=== PATIENT | male | born 1970 | race Asian ===

== ENCOUNTER 2017-12-19 04:07 | Emergency (ER) | payer SELFPAY ==
[~2017-12-19] VITALS: Ht 170.2 cm; Wt 82.0 kg
[~2017-12-19 04:07] MED LIST: ADVIL; MOTRIN
[2017-12-19] MEDS ORDERED: BACITRACIN ZINC OINT UDPKT TOP ONE (05:15)
[2017-12-19] MEDS ORDERED: TETANUS, DIPHTHERIA, PERTUSSIS VAC/PF 0.5ML (>7YR OLD) IM ONE (05:15)
[2017-12-19] MEDS ORDERED: KETOROLAC 60MG/2ML VIAL IM ONE (05:15)
[2017-12-19] MEDS ORDERED: LIDOCAINE HCL 1% 20ML VIAL (Pyxis) INJ MC ONE (05:15)
[2017-12-19] MEDS ORDERED: TRAMADOL 50MG TABLET PO ONE (07:45)
[2017-12-19 08:15] VITALS: BP 147/90
== END 2017-12-19 08:16 | disposition home or self-care (01) ==
LOC: ER 04:40
DX: S02.2XXA Fracture of nasal bones, initial encounter for closed fracture (principal); S01.512A Laceration without foreign body of oral cavity, initial encounter; J34.2 Deviated nasal septum; W01.0XXA Fall on same level from slipping, tripping and stumbling without subsequent striking against object, initial encounter; Y93.89 Activity, other specified; Y99.8 Other external cause status; Y92.89 Other specified places as the place of occurrence of the external cause; Z98.890 Other specified postprocedural states
CPT/HCPCS: 12011; 70486; 90471; 90715; 96372; 99284; J1885; J3490

== ENCOUNTER 2020-04-12 19:28 | Emergency (ER) | payer MEDICAID ==
[~2020-04-12] VITALS: Ht 170.2 cm; Wt 82.0 kg
[2020-04-12] MEDS ORDERED: SODIUM CHLORIDE 0.9% 1,000 ML IV ONE (20:28)
[2020-04-12] MEDS ORDERED: KETOROLAC 30MG/ML VIAL IV STA (20:28)
[2020-04-12 21:27] LABS: BASOPHILS % 0.5 % (0.0-2.0); EOSINOPHILS % 2.1 % (0.0-5.0); HEMOGLOBIN. 15.7 g/dL (14.0-18.0); LYMPHOCYTES % 32.9 % (20.0-50.0); MEAN CORPUSCULAR HEMOGLOBIN 31.4 pg (28.0-32.0); MEAN CORPUSCULAR VOLUME 90.3 fL (80.0-94.0); MEAN PLATELET VOLUME 8.5 fl (7.4-10.4); MONOCYTES % 4.1 % (2.0-8.0); NEUTROPHILS % 60.4 % (40.0-76.0); PLATELET 199 x1000/uL (130-400); RED BLOOD CELL COUNT 4.98 mill/uL (4.7-6.1); RED CELL DISTRIBUTION WIDTH 13.4 % (11.6-14.6)
[2020-04-12 21:33] LABS: CHLORIDE 108 mEq/L (98-107)
[2020-04-12 21:37] LABS: ETHANOL BLOOD < 10 mg/dL
[2020-04-12 21:55] LABS: CLARITY URINE CLEAR (CLEAR); COLOR URINE YELLOW (YELLOW); KETONES URINE 1+ (NEGATIVE); LEUKOCYTE ESTERASE URINE NEGATIVE (NEGATIVE); NITRITE URINE NEGATIVE (NEGATIVE); OCCULT BLOOD URINE NEGATIVE (NEGATIVE); PROTEIN URINE TRACE (NEGATIVE); SPECIFIC GRAVITY URINE 1.032 (1.005-1.030)
[2020-04-12 22:11] VITALS: BP 142/95
[2020-04-12 22:16] LABS: CANNABINOID URINE SCREEN NEGATIVE (NEGATIVE); METHADONE URINE SCREEN NEGATIVE (NEGATIVE); OPIATES URINE SCREEN NEGATIVE (NEGATIVE); PHENCYCLIDINE URINE SCREEN NEGATIVE (NEGATIVE)
[2020-04-12 22:17] LABS: *AMPHETAMINES SCREEN URINE NEGATIVE (NEGATIVE); *BARBITURATES SCREEN URINE NEGATIVE (NEGATIVE); *BENZODIAZEPINES SCREEN URINE NEGATIVE (NEGATIVE); *COCAINE SCREEN URINE NEGATIVE (NEGATIVE)
== END 2020-04-12 22:12 | disposition home or self-care (01) ==
LOC: ER 19:28
DX: R10.9 Unspecified abdominal pain (principal); I10 Essential (primary) hypertension
CPT/HCPCS: 36415; 80053; 80305; 80320; 81003; 83690; 85025; 96374; 99283; J1885; J7030; G0480

== ENCOUNTER 2023-03-10 13:08 | Inpatient (IN) | payer MEDICAID, OTHER ==
[~2023-03-10] VITALS: Ht 165.1 cm; Wt 93.4 kg
[2023-03-10 13:44] LABS: BASOPHILS % 0.5 % (0.0-2.0); EOSINOPHILS % 2.7 % (0.0-5.0); HEMATOCRIT. 39.7 % (42.0-52.0); HEMOGLOBIN. 13.8 g/dL (14.0-18.0); LYMPHOCYTES % 15.5 % (20.0-50.0); MEAN CORPUSCULAR HEMOGLOBIN 30.9 pg (28.0-32.0); MEAN CORPUSCULAR VOLUME 89.2 fL (80.0-94.0); MEAN PLATELET VOLUME 8.7 fl (7.4-10.4); MONOCYTES % 3.9 % (2.0-8.0); NEUTROPHILS % 77.4 % (40.0-76.0); PLATELET 182 x1000/uL (130-400); RED BLOOD CELL COUNT 4.46 mill/uL (4.7-6.1); RED CELL DISTRIBUTION WIDTH 13.8 % (11.6-14.6)
[2023-03-10 14:07] LABS: CHLORIDE 112 mEq/L (98-107)
[2023-03-10 15:11] LABS: CLARITY URINE CLEAR (CLEAR); COLOR URINE YELLOW (YELLOW); KETONES URINE TRACE (NEGATIVE); LEUKOCYTE ESTERASE URINE NEGATIVE (NEGATIVE); NITRITE URINE NEGATIVE (NEGATIVE); OCCULT BLOOD URINE NEGATIVE (NEGATIVE); PROTEIN URINE 1+ (NEGATIVE); SPECIFIC GRAVITY URINE 1.026 (1.005-1.030); UROBILINOGEN URINE 0.2 E.U./dL (0.2-1.0)
[2023-03-10] MEDS ORDERED: CEFTRIAXONE 1GM PREMIX 50 ML IV ONE (16:00)
[2023-03-10] MEDS ORDERED: ASPIRIN 81MG TABLET PO ONE (16:00)
[2023-03-10] MEDS ORDERED: AZITHROMYCIN 500MG/250ML 250 ML IV ONE (16:00)
[2023-03-10] MEDS ORDERED: FUROSEMIDE 40MG/4ML VIAL IVP ONE (16:15)
[2023-03-10] MEDS ORDERED: CLONIDINE 0.2MG TABLET PO ONE (16:15)
[2023-03-10] MEDS ORDERED: CLONIDINE 0.1MG TABLET PO NR (16:45)
[2023-03-10 16:53] LABS: D-DIMER 1.81 mg/L FEU (<0.50); PARTIAL THROMBOPLASTIN TIME 30.8 sec (23.4-31.0); PROTHROMBIN TIME 11.1 sec (9.6-11.0)
[2023-03-10] MEDS ORDERED: AZITHROMYCIN 500MG/250ML 250 ML IV NR (19:00)
[2023-03-10] MEDS ORDERED: IOHEXOL-350 100 ML BOTTLE ONE (21:14)
[2023-03-10 21:48] VITALS: BP 165/98; PULSE 80; RESP 20; TEMP 98.8
[2023-03-11] VITALS (7 sets, daily range): BP systolic 121–152; BP diastolic 64–107; PULSE 64–82; RESP 18–20; TEMP 97.7–99.1
[2023-03-11] MEDS ORDERED: IPRATROPIUM/ALBUTEROL 0.5-3(2.5)MG/3ML NEB HHN PRN (01:15)
[2023-03-11] MEDS: FUROSEMIDE 40MG/4ML VIAL IVP SCH (10:16)
[2023-03-11] MEDS: ENOXAPARIN 40MG/0.4ML SYR SUBCUT SCH (10:16)
[2023-03-11] MEDS: LOSARTAN POTASSIUM 50 MG TABLET PO SCH (10:17)
[2023-03-11] MEDS: CARVEDILOL 3.125 MG TABLET PO SCH ×2 (10:17→20:37)
[2023-03-11] MEDS: ASPIRIN 81MG TABLET PO SCH (10:18)
[2023-03-11] MEDS: AMLODIPINE 10MG TABLET PO SCH (10:19)
[2023-03-11] MEDS ORDERED: ACETAMINOPHEN 325MG TABLET PO PRN (12:30)
[2023-03-12] VITALS (8 sets, daily range): BP systolic 125–167; BP diastolic 87–112; PULSE 68–78; RESP 18–20; TEMP 97.3–98
[2023-03-12 01:28] LABS: *AMPHETAMINES SCREEN URINE NEGATIVE (NEGATIVE); *BARBITURATES SCREEN URINE NEGATIVE (NEGATIVE); *BENZODIAZEPINES SCREEN URINE NEGATIVE (NEGATIVE); *COCAINE SCREEN URINE NEGATIVE (NEGATIVE); CANNABINOID URINE SCREEN NEGATIVE (NEGATIVE); METHADONE URINE SCREEN NEGATIVE (NEGATIVE); OPIATES URINE SCREEN NEGATIVE (NEGATIVE); PHENCYCLIDINE URINE SCREEN NEGATIVE (NEGATIVE)
[2023-03-12 06:31] LABS: CHLORIDE 110 mEq/L (98-107)
[2023-03-12] MEDS ORDERED: POTASSIUM CHLORIDE 20MEQ TABLET SR PO NR (08:00)
[2023-03-12] MEDS: FUROSEMIDE 40MG/4ML VIAL IVP SCH (09:19)
[2023-03-12] MEDS: ENOXAPARIN 40MG/0.4ML SYR SUBCUT SCH (09:19)
[2023-03-12] MEDS: LOSARTAN POTASSIUM 50 MG TABLET PO SCH (09:25)
[2023-03-12] MEDS: CARVEDILOL 3.125 MG TABLET PO SCH ×2 (09:25→21:36)
[2023-03-12] MEDS: AMLODIPINE 10MG TABLET PO SCH (09:25)
[2023-03-12] MEDS: SPIRONOLACTONE 25MG TABLET PO SCH (09:25)
[2023-03-12] MEDS: ASPIRIN 81MG TABLET PO SCH (09:25)
[2023-03-12] MEDS ORDERED: LIDOCAINE 2% 6ML GLYDO MM ONE (14:04)
[2023-03-12] MEDS ORDERED: TETRACAINE/BENZOCAINE/BUTAMBEN 20 GM SPRAY MM ONE (14:04)
[2023-03-12] MEDS ORDERED: DIPHENHYDRAMINE 50MG/ML VIAL ONE (14:26)
[2023-03-12] MEDS ORDERED: FENTANYL CITRATE/PF 50MCG/ML 2ML VIAL ONE (14:26)
[2023-03-12] MEDS ORDERED: MIDAZOLAM HCL 2 MG/2 ML VIAL ONE (14:27)
[2023-03-13] VITALS: BP 151/99; PULSE 70; RESP 20; TEMP 97.7
[2023-03-13 04:00] VITALS: BP 144/104; PULSE 67; RESP 19; TEMP 97.6
[2023-03-13] MEDS ORDERED: NITROGLYCERIN 50MCG/ML 10ML VIAL (CATH LAB) IV ONE (07:00)
[2023-03-13] MEDS ORDERED: NICARDIPINE 100MCG/ML 10ML VIAL (CATH LAB) IV ONE (07:00)
[2023-03-13 08:00] VITALS: BP 151/107; PULSE 70; RESP 19; TEMP 97.7
[2023-03-13] MEDS: ASPIRIN 81MG TABLET PO SCH (08:49)
[2023-03-13] MEDS: AMLODIPINE 10MG TABLET PO SCH (08:49)
[2023-03-13] MEDS: SPIRONOLACTONE 25MG TABLET PO SCH (08:49)
[2023-03-13] MEDS: FUROSEMIDE 40MG/4ML VIAL IVP SCH (08:49)
[2023-03-13] MEDS: CARVEDILOL 3.125 MG TABLET PO SCH (08:49)
[2023-03-13] MEDS: LOSARTAN POTASSIUM 50 MG TABLET PO SCH (08:50)
[2023-03-13] MEDS: ENOXAPARIN 40MG/0.4ML SYR SUBCUT SCH (08:50)
[2023-03-13 12:00] VITALS: BP 153/103; PULSE 69; RESP 19; TEMP 97.8
[2023-03-13] MEDS ORDERED: MIDAZOLAM HCL 2 MG/2 ML VIAL ONE (14:00)
[2023-03-13] MEDS ORDERED: VERAPAMIL HCL 2.5 MG/1 ML 2ML VIAL IV ONE (14:00)
[2023-03-13] MEDS ORDERED: LIDOCAINE HCL/PF 2% 20MG/ML 5 ML/VIAL ONE (14:00)
[2023-03-13] MEDS ORDERED: HEPARIN 1000 UNITS/ML 10ML ONE (14:00)
[2023-03-13] MEDS ORDERED: FENTANYL CITRATE/PF 50MCG/ML 2ML VIAL ONE (14:00)
[2023-03-13] MEDS ORDERED: DIPHENHYDRAMINE 50MG/ML VIAL ONE (14:01)
[2023-03-13] MEDS ORDERED: IODIXANOL 320MG/ML 100 ML BOTTLE IV ONE (14:01)
[2023-03-13] MEDS ORDERED: ACETAMINOPHEN 325MG TABLET PO PRN (14:45)
[2023-03-13] MEDS ORDERED: ATROPINE SULFATE 1MG/10ML SYR IV PRN (14:45)
[2023-03-13] MEDS ORDERED: FURO20TA4 PO (15:21)
[2023-03-13] MEDS ORDERED: LOSA50TA41 PO (15:21)
[2023-03-13] MEDS ORDERED: AMLO10TA80 PO (15:21)
[2023-03-13 17:55] VITALS: BP 150/98; PULSE 65; TEMP 97.7; O2SAT 97
[2023-03-14] MEDS ORDERED: FUROSEMIDE 20MG TABLET PO SCH (09:00)
== END 2023-03-13 18:50 | disposition home or self-care (01) | DRG 192 ==
LOC: ER 13:08 → 7WST 19:20 → ENRESERV 20:14
PROVIDERS: ADMIT Internal Medicine; ATTEND Internal Medicine
PROC: 4A023N7 Measurement of Cardiac Sampling and Pressure, Left Heart, Percutaneous Approach (ICD-10-PCS; principal; 2023-03-13)
PROC: B211YZZ Fluoroscopy of Multiple Coronary Arteries using Other Contrast (ICD-10-PCS; 2023-03-13)
DX: I11.0 Hypertensive heart disease with heart failure (principal); J96.01 Acute respiratory failure with hypoxia; I50.33 Acute on chronic diastolic (congestive) heart failure; Z20.822 Contact with and (suspected) exposure to COVID-19; I16.0 Hypertensive urgency; E66.9 Obesity, unspecified; I34.0 Nonrheumatic mitral (valve) insufficiency; Z68.34 Body mass index [BMI] 34.0-34.9, adult
CPT/HCPCS: 36415; 71045; 71275; 80048; 80053; 80305; 81003; 83605; 83880; 84145; 84484; 85025; 85379; 87426; 93306; 93312; 99285; C9803; J0456; J0696; J1200; J1644; J1650; J1940; J2250; J3010; J3490; Q9967

== ENCOUNTER → 2023-04-28 | Outpatient (CLI) | payer MEDICAID ==
[~2023-04-28] MED LIST changes: -ADVIL; +ALBU18HF2 IH; +AMLO10TA80 PO; +ASCO-339 PO; +FURO20TA4 PO; +HYDR25TA PO; +LISI20TA31 PO; +LOSA50TA41 PO; +MIRT-111 PO; -MOTRIN; +MULT-1204 PO; +QUET100T PO
[2023-04-28 11:27] LABS: CLARITY URINE CLEAR (CLEAR); COLOR URINE YELLOW (YELLOW); GLUCOSE URINE NEGATIVE (NEGATIVE); KETONES URINE TRACE (NEGATIVE); LEUKOCYTE ESTERASE URINE NEGATIVE (NEGATIVE); NITRITE URINE NEGATIVE (NEGATIVE); OCCULT BLOOD URINE NEGATIVE (NEGATIVE); PROTEIN URINE NEGATIVE (NEGATIVE); SPECIFIC GRAVITY URINE 1.022 (1.005-1.030); UROBILINOGEN URINE 0.2 E.U./dL (0.2-1.0)
[2023-04-28 11:44] LABS: BASOPHILS % 0.6 % (0.0-2.0); EOSINOPHILS % 2.4 % (0.0-5.0); HEMOGLOBIN. 14.9 g/dL (14.0-18.0); LYMPHOCYTES % 25.7 % (20.0-50.0); MEAN CORPUSCULAR HEMOGLOBIN 30.7 pg (28.0-32.0); MEAN CORPUSCULAR HGB CONC 34.7 g/dL (31.0-37.0); MEAN CORPUSCULAR VOLUME 88.5 fL (80.0-94.0); MEAN PLATELET VOLUME 8.7 fl (7.4-10.4); MONOCYTES % 4.5 % (2.0-8.0); NEUTROPHILS % 66.8 % (40.0-76.0); PLATELET 195 x1000/uL (130-400); RED BLOOD CELL COUNT 4.85 mill/uL (4.7-6.1); RED CELL DISTRIBUTION WIDTH 13.8 % (11.6-14.6); WHITE BLOOD COUNT 4.6 x1000/uL (4.5-11.0)
[2023-04-28 11:56] LABS: PARTIAL THROMBOPLASTIN TIME 30.2 sec (23.4-31.0); PROTHROMBIN TIME 10.6 sec (9.6-11.0)
[2023-04-28 12:15] LABS: CALCIUM 8.6 mg/dL (8.5-10.1); CARBON DIOXIDE 24 mEq/L (21-32); CHLORIDE 113 mEq/L (98-107); GLUCOSE 106 mg/dL (70-105); INDEX HEMOLYSI 1 (1-3); INDEX ICTERIC 1 (1-4); INDEX LIPEMIC 1 (1-3); POTASSIUM 3.9 mEq/L (3.5-5.1); SODIUM 140 mEq/L (136-145); UREA NITROGEN BLOOD 14 mg/dL (7-21)
[2023-04-28 12:19] LABS: CREATININE 1.1 mg/dL (0.6-1.3)
== END | disposition home or self-care (01) ==
LOC: LAB 10:51
PROVIDERS: ATTEND Thoracic Surgery (Cardiothoracic Vascular Surgery)
DX: I34.0 Nonrheumatic mitral (valve) insufficiency (principal)
CPT/HCPCS: 36415; 80048; 81003; 85025; 86850; 86900

== ENCOUNTER 2023-04-29 05:51 | Inpatient (IN) | payer MEDICAID ==
[~2023-04-29] VITALS: Ht 170.2 cm; Wt 96.2 kg
[2023-04-29] VITALS (85 sets, daily range): BP systolic 56–275; BP diastolic 37–274; PULSE 60–79; RESP 5–45; TEMP 97.6–99.5; O2SAT 96–100
[~2023-04-29 05:51] MED LIST changes: +ACETAMINOPHEN 500MG TABLET ONE; -ASCO-339 PO; +DOPAMINE 400MG/250ML PREMIX 250 ML IV ONE; -FURO20TA4 PO; +HEPARIN 1000 UNITS/ML 10ML ONE; -LOSA50TA41 PO; -MULT-1204 PO; +NICARDIPINE 40MG/200ML PREMIX 200 ML IV ONE; +POLYMYXIN B SULFATE 500000 UNITS/VIAL ONE; +SEVOFLURANE 250 ML LIQUID INH ONE; +THROMBIN (BOVINE) 5000 UNITS/VIAL TOP ONE
[2023-04-29] MEDS ORDERED: DOBUTAMINE 250 MG/250 ML PREMIX IV PRN (06:00)
[2023-04-29] MEDS ORDERED: NICARDIPINE 40MG/200ML PREMIX 200 ML IV PRN ×2 (06:00→16:30)
[2023-04-29] MEDS ORDERED: CEFAZOLIN 2,000 MG in DEXT 5% WATER 100 ML IV NR (06:00)
[2023-04-29] MEDS ORDERED: INSULIN REGULAR 100 U/100 ML PREMIX IV PRN (06:00)
[2023-04-29] MEDS ORDERED: EPINEPHRINE 5 MG in DEXT 5% WATER 250 ML IV PRN (06:00)
[2023-04-29] MEDS ORDERED: DEL NIDO CARDIOPLEGIA 1,000 ML (CHMC) IV NR ×12 (06:00)
[2023-04-29] MEDS ORDERED: NOREPINEPHRINE 8MG/250ML PMX 250 ML IV PRN (06:00)
[2023-04-29] MEDS ORDERED: SODIUM CHLORIDE 0.9% 1,000 ML IV SCH (06:15)
[2023-04-29] MEDS ORDERED: PROPOFOL 200MG/20ML VIAL IV ONE ×2 (07:07→08:16)
[2023-04-29] MEDS ORDERED: POLYMYXIN B SULFATE 500000 UNITS/VIAL ONE (07:08)
[2023-04-29] MEDS ORDERED: FENTANYL CITRATE/PF 50MCG/ML 2ML VIAL ONE ×3 (07:08→08:17)
[2023-04-29] MEDS ORDERED: ROCURONIUM BROMIDE 10MG/ML VIAL 5ML IV ONE (07:10)
[2023-04-29] MEDS ORDERED: MIDAZOLAM HCL 2 MG/2 ML VIAL ONE (07:10)
[2023-04-29] MEDS ORDERED: PHENYLEPHRINE HCL 10 MG/ML 1ML (IV VIAL) IV ONE ×2 (07:11→08:00)
[2023-04-29] MEDS ORDERED: ASCO-339 PO (07:43)
[2023-04-29] MEDS ORDERED: MULT-1204 PO (07:43)
[2023-04-29] MEDS ORDERED: MANNITOL 20% (20GM/100ML) BAG 500ML PREMIX IV ONE (08:00)
[2023-04-29] MEDS ORDERED: CALCIUM CHLORIDE 1GM/10ML SYR IV ONE (08:00)
[2023-04-29] MEDS ORDERED: AMINOCAPROIC ACID 250 MG/ML 20ML VIAL ONE (08:00)
[2023-04-29] MEDS ORDERED: HEPARIN 1000 UNITS/ML 10ML ONE (08:00)
[2023-04-29] MEDS ORDERED: LIDOCAINE HCL 2% 5ML SYRINGE IV ONE (08:00)
[2023-04-29] MEDS ORDERED: SODIUM BICARBONATE 8.4% 1 MEQ/ML 50ML SYR IV ONE (08:00)
[2023-04-29] MEDS ORDERED: MAGNESIUM SULFATE 5GM/10ML VIAL IV ONE (08:00)
[2023-04-29] MEDS ORDERED: ALBUMIN HUMAN 25GM/100ML (25%) IV ONE (08:00)
[2023-04-29] MEDS ORDERED: FUROSEMIDE 20MG/2ML VIAL ONE (08:00)
[2023-04-29] MEDS ORDERED: AMINOCAPROIC ACID 5,000 MG in SODIUM CHLORIDE 0.9% 250 ML IV NR (08:30)
[2023-04-29] MEDS ORDERED: FUROSEMIDE 100MG/10ML VIAL ONE (08:49)
[2023-04-29] MEDS ORDERED: LABETALOL HCL 5MG/ML VIAL 20ML IV ONE (08:49)
[2023-04-29] MEDS ORDERED: MAGNESIUM 1 G PREMIX 100 ML IV PRN ×2 (09:45→11:00)
[2023-04-29] MEDS ORDERED: DEXTROSE 50% WATER 50ML SYRINGE IV PRN ×2 (09:45)
[2023-04-29] MEDS ORDERED: MAGNESIUM 2 G PREMIX 50 ML IV PRN ×2 (09:45→11:00)
[2023-04-29] MEDS ORDERED: KCL 10MEQ/50ML PREMIX 200 ML IV PRN (09:45)
[2023-04-29] MEDS ORDERED: MAGNESIUM SULFATE 3 GM in DEXT 5% WATER 100 ML IV PRN ×2 (09:45→11:00)
[2023-04-29] MEDS ORDERED: KCL 10MEQ/50ML PREMIX 100 ML IV PRN (09:45)
[2023-04-29] MEDS ORDERED: NEOSTIGMINE METHYLSULFATE 1MG/ML 10 ML VIAL ONE (10:18)
[2023-04-29] MEDS ORDERED: GLYCOPYRROLATE 0.2 MG/ML 2ML VIAL ONE ×2 (10:18→10:23)
[2023-04-29] MEDS ORDERED: HYDROMORPHONE HCL/PF 2MG/ML CPJ ONE (10:20)
[2023-04-29] MEDS ORDERED: KETOROLAC 30MG/ML VIAL ONE (10:21)
[2023-04-29] MEDS ORDERED: CALCIUM CHLORIDE 5,000 MG in DEXT 5% WATER 500 ML IV PRN (11:00)
[2023-04-29] MEDS ORDERED: ALBUMIN HUMAN 12.5G/250ML (5%) IV PRN (11:00)
[2023-04-29] MEDS ORDERED: DEXT 5%/0.45% NACL 1000ML 1,000 ML IV SCH (11:00)
[2023-04-29] MEDS ORDERED: OXYCODONE HCL/ACETAMINOPHEN 5/325MG TABLET PO PRN (11:00)
[2023-04-29] MEDS ORDERED: SODIUM CHLORIDE 0.9% 500 ML IV PRN (11:00)
[2023-04-29] MEDS ORDERED: ALBUMIN HUMAN 25GM/100ML (25%) IV PRN (11:00)
[2023-04-29] MEDS ORDERED: EPINEPHRINE 5 MG in DEXT 5% WATER 245 ML IV PRN ×2 (11:00→11:15)
[2023-04-29] MEDS ORDERED: ACETAMINOPHEN 325MG TABLET PO PRN (11:00)
[2023-04-29] MEDS ORDERED: DOPAMINE 400MG/250ML PREMIX 250 ML IV PRN (11:00)
[2023-04-29] MEDS ORDERED: CALCIUM CHLORIDE 3,000 MG in DEXT 5% WATER 250 ML IV PRN (11:00)
[2023-04-29 11:20] LABS: BG BASE EXCESS -3.3 mmol/L (-2.0-2.0); BG CARBOXYHEMOGLOBIN 0.5 % (0.5-1.5); BG DEOXYHEMOGLOBIN 3.2 % (0.0-5.0); BG FRACTION INSPIRED OXYGEN 100; BG HCO3 ACT 22.3 mmol/L (22.0-26.0); BG METHEMOGLOBIN 0.2 % (0.0-1.5); BG OXYGEN SATURATION 96.8 % (92.0-98.5); BG OXYHEMOGLOBIN 96.1 % (94.0-97.0); BG PCO2 42.1 mmHg (35.0-45.0); BG PH 7.342 (7.350-7.450); BG PO2 96.5 mmHg (75.0-100.0); BG SAMPLE SITE ALINE; BG TOTAL HEMOGLOBIN 14.7 g/dL (12.0-18.0); BG VENT MODE MASK - NRB
[2023-04-29 11:31] LABS: BASOPHILS % 0.2 % (0.0-2.0); EOSINOPHILS % 0.3 % (0.0-5.0); HEMATOCRIT. 40.1 % (42.0-52.0); HEMOGLOBIN. 13.9 g/dL (14.0-18.0); LYMPHOCYTES % 8.2 % (20.0-50.0); MEAN CORPUSCULAR HEMOGLOBIN 30.2 pg (28.0-32.0); MEAN CORPUSCULAR HGB CONC 34.6 g/dL (31.0-37.0); MEAN CORPUSCULAR VOLUME 87.3 fL (80.0-94.0); MEAN PLATELET VOLUME 8.8 fl (7.4-10.4); MONOCYTES % 4.4 % (2.0-8.0); NEUTROPHILS % 86.9 % (40.0-76.0); PLATELET 167 x1000/uL (130-400); RED BLOOD CELL COUNT 4.59 mill/uL (4.7-6.1); RED CELL DISTRIBUTION WIDTH 13.4 % (11.6-14.6); WHITE BLOOD COUNT 12.4 x1000/uL (4.5-11.0)
[2023-04-29 11:38] LABS: CALCIUM 8.1 mg/dL (8.5-10.1); CARBON DIOXIDE 25 mEq/L (21-32); CHLORIDE 105 mEq/L (98-107); INDEX HEMOLYSI 2 (1-3); INDEX ICTERIC 1 (1-4); INDEX LIPEMIC 1 (1-3); POTASSIUM 3.5 mEq/L (3.5-5.1); SODIUM 136 mEq/L (136-145); UREA NITROGEN BLOOD 10 mg/dL (7-21)
[2023-04-29] MEDS: BLOOD SUGAR DIAGNOSTIC STRIP TEST SCH ×12 (11:40→22:06)
[2023-04-29 11:42] LABS: CREATININE 1.2 mg/dL (0.6-1.3); GLUCOSE 158 mg/dL (70-105)
[2023-04-29] MEDS: INSULIN REGULAR 100U/100ML PMX 100 ML IV SCH (11:42)
[2023-04-29] MEDS: KCL 10MEQ/50ML PREMIX 150 ML IV PRN ×5 (11:49→19:48)
[2023-04-29] MEDS: IPRATROPIUM/ALBUTEROL 0.5-3(2.5)MG/3ML NEB HHN SCH ×3 (12:39→21:04)
[2023-04-29] MEDS: OXYCODONE HCL/ACETAMINOPHEN 5/325MG TABLET PO PRN ×3 (13:06→22:10)
[2023-04-29] MEDS: CEFAZOLIN 1000MG PREMIX 50 ML IV SCH (16:33)
[2023-04-29] MEDS ORDERED: NICARDIPINE 50 MG in SODIUM CHLORIDE 0.9% 250 ML IV PRN (16:45)
[2023-04-29] MEDS: BACITRACIN 15GM TUBE TOP SCH (17:00)
[2023-04-29] MEDS: ONDANSETRON HCL 4MG/2ML INJ IV PRN ×2 (17:19→22:10)
[2023-04-29 17:22] LABS: HEMATOCRIT. 40.6 % (42.0-52.0); HEMOGLOBIN. 13.9 g/dL (14.0-18.0); MEAN CORPUSCULAR HGB CONC 34.1 g/dL (31.0-37.0); MEAN CORPUSCULAR VOLUME 87.7 fL (80.0-94.0); MEAN PLATELET VOLUME 8.7 fl (7.4-10.4); PLATELET 174 x1000/uL (130-400); RED BLOOD CELL COUNT 4.63 mill/uL (4.7-6.1); RED CELL DISTRIBUTION WIDTH 13.8 % (11.6-14.6); WHITE BLOOD COUNT 11.9 x1000/uL (4.5-11.0)
[2023-04-29 17:23] LABS: DIFFERENTIAL COMMENT 1
[2023-04-29 17:34] LABS: CHLORIDE 110 mEq/L (98-107); INDEX HEMOLYSI 1 (1-3); INDEX ICTERIC 1 (1-4); INDEX LIPEMIC 1 (1-3); POTASSIUM 3.4 mEq/L (3.5-5.1); SODIUM 140 mEq/L (136-145)
[2023-04-29 17:36] LABS: CALCIUM 8.2 mg/dL (8.5-10.1)
[2023-04-29] MEDS: DOCUSATE SODIUM 100MG CAPSULE PO SCH (17:38)
[2023-04-29 17:40] LABS: CARBON DIOXIDE 25 mEq/L (21-32); GLUCOSE 126 mg/dL (70-105); PHOSPHORUS 2.4 mg/dL (2.5-4.9); UREA NITROGEN BLOOD 11 mg/dL (7-21)
[2023-04-29] MEDS: KETOROLAC 30MG/ML VIAL IV PRN (19:47)
[2023-04-29 20:00] LABS: PLATELET ESTIMATE NORMAL
[2023-04-30] VITALS (109 sets, daily range): BP systolic 64–191; BP diastolic 50–103; PULSE 69–85; RESP 8–34; TEMP 98.8–100.1; O2SAT 97–100
[2023-04-30] MEDS: IPRATROPIUM/ALBUTEROL 0.5-3(2.5)MG/3ML NEB HHN SCH ×6 (00:06→21:39)
[2023-04-30 01:41] LABS: HEMATOCRIT. 39.1 % (42.0-52.0); HEMOGLOBIN. 13.2 g/dL (14.0-18.0); MEAN CORPUSCULAR HEMOGLOBIN 29.7 pg (28.0-32.0); MEAN CORPUSCULAR HGB CONC 33.8 g/dL (31.0-37.0); MEAN CORPUSCULAR VOLUME 88.1 fL (80.0-94.0); MEAN PLATELET VOLUME 8.9 fl (7.4-10.4); PLATELET 175 x1000/uL (130-400); RED BLOOD CELL COUNT 4.44 mill/uL (4.7-6.1); RED CELL DISTRIBUTION WIDTH 13.9 % (11.6-14.6); WHITE BLOOD COUNT 12.2 x1000/uL (4.5-11.0)
[2023-04-30] MEDS: CEFAZOLIN 1000MG PREMIX 50 ML IV SCH ×3 (01:49→16:41)
[2023-04-30 01:52] LABS: CHLORIDE 109 mEq/L (98-107); INDEX HEMOLYSI 1 (1-3); INDEX ICTERIC 1 (1-4); INDEX LIPEMIC 1 (1-3); POTASSIUM 3.2 mEq/L (3.5-5.1); SODIUM 139 mEq/L (136-145)
[2023-04-30 01:55] LABS: DIFFERENTIAL COMMENT 1
[2023-04-30 01:58] LABS: CALCIUM 8.1 mg/dL (8.5-10.1); CARBON DIOXIDE 25 mEq/L (21-32); CREATININE 0.9 mg/dL (0.6-1.3); GLUCOSE 91 mg/dL (70-105); UREA NITROGEN BLOOD 11 mg/dL (7-21)
[2023-04-30 02:13] LABS: PLATELET ESTIMATE NORMAL
[2023-04-30] MEDS: BLOOD SUGAR DIAGNOSTIC STRIP TEST SCH ×6 (02:13→10:06)
[2023-04-30] MEDS: OXYCODONE HCL/ACETAMINOPHEN 5/325MG TABLET PO PRN ×2 (04:31→22:06)
[2023-04-30] MEDS: INSULIN REGULAR 100U/100ML PMX 100 ML IV SCH (06:25)
[2023-04-30] MEDS: KETOROLAC 30MG/ML VIAL IV PRN (06:26)
[2023-04-30 07:05] LABS: BASOPHILS % 0.2 % (0.0-2.0); EOSINOPHILS % 0.1 % (0.0-5.0); HEMATOCRIT. 39.3 % (42.0-52.0); HEMOGLOBIN. 13.7 g/dL (14.0-18.0); LYMPHOCYTES % 8.3 % (20.0-50.0); MEAN CORPUSCULAR HEMOGLOBIN 30.5 pg (28.0-32.0); MEAN CORPUSCULAR HGB CONC 34.8 g/dL (31.0-37.0); MEAN CORPUSCULAR VOLUME 87.7 fL (80.0-94.0); MEAN PLATELET VOLUME 9.3 fl (7.4-10.4); MONOCYTES % 6.6 % (2.0-8.0); NEUTROPHILS % 84.8 % (40.0-76.0); PLATELET 188 x1000/uL (130-400); RED BLOOD CELL COUNT 4.49 mill/uL (4.7-6.1); RED CELL DISTRIBUTION WIDTH 14.2 % (11.6-14.6); WHITE BLOOD COUNT 12.7 x1000/uL (4.5-11.0)
[2023-04-30 07:10] LABS: CHLORIDE 107 mEq/L (98-107); INDEX HEMOLYSI 1 (1-3); INDEX ICTERIC 1 (1-4); INDEX LIPEMIC 1 (1-3); POTASSIUM 4.3 mEq/L (3.5-5.1); SODIUM 138 mEq/L (136-145)
[2023-04-30 07:12] LABS: CALCIUM 8.1 mg/dL (8.5-10.1)
[2023-04-30 07:16] LABS: CARBON DIOXIDE 25 mEq/L (21-32); CREATININE 0.8 mg/dL (0.6-1.3); GLUCOSE 105 mg/dL (70-105); UREA NITROGEN BLOOD 10 mg/dL (7-21)
[2023-04-30] MEDS ORDERED: FUROSEMIDE 40MG/4ML VIAL IVP NR ×2 (08:15→16:36)
[2023-04-30] MEDS: FAMOTIDINE 20MG/2ML VIAL IV SCH (08:19)
[2023-04-30] MEDS: DOCUSATE SODIUM 100MG CAPSULE PO SCH ×2 (08:19→16:08)
[2023-04-30] MEDS: BACITRACIN 15GM TUBE TOP SCH ×2 (08:22→16:05)
[2023-04-30] MEDS ORDERED: MAGNESIUM 2 G PREMIX 50 ML IV NR (08:30)
[2023-04-30] MEDS: ONDANSETRON HCL 4MG/2ML INJ IV PRN (09:18)
[2023-04-30] MEDS ORDERED: NALOXONE HCL 0.4MG/ML VIAL IV PRN (09:30)
[2023-04-30] MEDS ORDERED: HYDRALAZINE 20MG/ML VIAL IV PRN (12:00)
[2023-04-30] MEDS ORDERED: LISINOPRIL 10MG TABLET PO SCH (12:15)
[2023-04-30] MEDS: AMLODIPINE 10MG TABLET PO SCH (15:56)
[2023-04-30] MEDS: METOPROLOL TARTRATE 25MG TABLET PO SCH (16:41)
[2023-04-30] MEDS ORDERED: LABETALOL 5MG/ML SYR 20 MG/4 ML SYRINGE IV PRN (17:45)
[2023-05-01] VITALS (11 sets, daily range): BP systolic 125–155; BP diastolic 66–94; PULSE 67–93; RESP 15–31; TEMP 98.6–99.6; O2SAT 97–99
[2023-05-01] MEDS: METOPROLOL TARTRATE 25MG TABLET PO SCH ×2 (00:23→09:01)
[2023-05-01] MEDS: IPRATROPIUM/ALBUTEROL 0.5-3(2.5)MG/3ML NEB HHN SCH ×6 (01:18→21:58)
[2023-05-01 07:10] LABS: BASOPHILS % 0.2 % (0.0-2.0); HEMATOCRIT. 39.5 % (42.0-52.0); HEMOGLOBIN. 13.9 g/dL (14.0-18.0); LYMPHOCYTES % 12.8 % (20.0-50.0); MEAN CORPUSCULAR HEMOGLOBIN 31.4 pg (28.0-32.0); MEAN CORPUSCULAR HGB CONC 35.2 g/dL (31.0-37.0); MEAN CORPUSCULAR VOLUME 89.2 fL (80.0-94.0); MEAN PLATELET VOLUME 9.3 fl (7.4-10.4); MONOCYTES % 8.1 % (2.0-8.0); NEUTROPHILS % 77.9 % (40.0-76.0); PLATELET 145 x1000/uL (130-400); RED BLOOD CELL COUNT 4.43 mill/uL (4.7-6.1); RED CELL DISTRIBUTION WIDTH 13.9 % (11.6-14.6); WHITE BLOOD COUNT 10.9 x1000/uL (4.5-11.0)
[2023-05-01 07:41] LABS: CHLORIDE 107 mEq/L (98-107); INDEX HEMOLYSI 1 (1-3); INDEX ICTERIC 1 (1-4); INDEX LIPEMIC 1 (1-3); POTASSIUM 3.8 mEq/L (3.5-5.1); SODIUM 134 mEq/L (136-145)
[2023-05-01 07:45] LABS: CALCIUM 8.3 mg/dL (8.5-10.1); CARBON DIOXIDE 27 mEq/L (21-32); CREATININE 0.9 mg/dL (0.6-1.3); GLUCOSE 115 mg/dL (70-105); UREA NITROGEN BLOOD 16 mg/dL (7-21)
[2023-05-01] MEDS: FAMOTIDINE 20MG/2ML VIAL IV SCH (09:00)
[2023-05-01] MEDS: DOCUSATE SODIUM 100MG CAPSULE PO SCH ×2 (09:00→17:10)
[2023-05-01] MEDS: AMLODIPINE 10MG TABLET PO SCH (09:00)
[2023-05-01] MEDS: BACITRACIN 15GM TUBE TOP SCH ×2 (09:01→17:10)
[2023-05-01] MEDS: LISINOPRIL 20MG TABLET PO SCH (09:01)
[2023-05-01] MEDS ORDERED: FUROSEMIDE 100MG/10ML VIAL IVP NR (09:15)
[2023-05-01] MEDS ORDERED: MAGNESIUM 4 G PREMIX 100 ML IV NR (11:00)
[2023-05-01] MEDS ORDERED: FUROSEMIDE 40MG/4ML VIAL IVP NR (15:15)
[2023-05-01] MEDS: METOPROLOL TARTRATE 50MG TABLET PO SCH (20:44)
[2023-05-02 00:05] VITALS: BP 110/60; PULSE 68; RESP 19; TEMP 98.9
[2023-05-02 01:57] VITALS: PULSE 66; RESP 18
[2023-05-02] MEDS: IPRATROPIUM/ALBUTEROL 0.5-3(2.5)MG/3ML NEB HHN SCH ×5 (01:57→16:13)
[2023-05-02 04:09] VITALS: BP 121/80; PULSE 74; RESP 23; TEMP 98.9
[2023-05-02 06:32] LABS: BASOPHILS % 0.3 % (0.0-2.0); EOSINOPHILS % 1.7 % (0.0-5.0); HEMATOCRIT. 38.6 % (42.0-52.0); HEMOGLOBIN. 13.8 g/dL (14.0-18.0); LYMPHOCYTES % 17.7 % (20.0-50.0); MEAN CORPUSCULAR HEMOGLOBIN 31.3 pg (28.0-32.0); MEAN CORPUSCULAR HGB CONC 35.7 g/dL (31.0-37.0); MEAN CORPUSCULAR VOLUME 87.8 fL (80.0-94.0); MEAN PLATELET VOLUME 8.9 fl (7.4-10.4); MONOCYTES % 7.7 % (2.0-8.0); NEUTROPHILS % 72.6 % (40.0-76.0); PLATELET 151 x1000/uL (130-400); RED CELL DISTRIBUTION WIDTH 13.9 % (11.6-14.6); WHITE BLOOD COUNT 9.2 x1000/uL (4.5-11.0)
[2023-05-02 07:18] LABS: CHLORIDE 102 mEq/L (98-107); INDEX HEMOLYSI 1 (1-3); INDEX ICTERIC 1 (1-4); INDEX LIPEMIC 1 (1-3); POTASSIUM 3.5 mEq/L (3.5-5.1); SODIUM 135 mEq/L (136-145)
[2023-05-02 07:23] LABS: CALCIUM 8.5 mg/dL (8.5-10.1); CARBON DIOXIDE 27 mEq/L (21-32); GLUCOSE 115 mg/dL (70-105); UREA NITROGEN BLOOD 25 mg/dL (7-21)
[2023-05-02 08:00] VITALS: BP 131/77; PULSE 76; RESP 22; TEMP 99.1
[2023-05-02] MEDS ORDERED: MAGNESIUM 2 G PREMIX 50 ML IV NR (08:00)
[2023-05-02] MEDS ORDERED: FUROSEMIDE 40MG/4ML VIAL IVP NR (08:00)
[2023-05-02] MEDS: METOPROLOL TARTRATE 50MG TABLET PO SCH (09:10)
[2023-05-02] MEDS: FAMOTIDINE 20MG/2ML VIAL IV SCH (09:10)
[2023-05-02] MEDS: DOCUSATE SODIUM 100MG CAPSULE PO SCH (09:10)
[2023-05-02] MEDS: BACITRACIN 15GM TUBE TOP SCH (09:11)
[2023-05-02] MEDS: AMLODIPINE 10MG TABLET PO SCH (09:11)
[2023-05-02] MEDS: LISINOPRIL 20MG TABLET PO SCH (09:11)
[2023-05-02 12:00] VITALS: BP 128/60; PULSE 67; RESP 17; TEMP 98
[2023-05-02 12:47] VITALS: BP 124/74; PULSE 91; TEMP 98.8; O2SAT 96
== END 2023-05-02 14:55 | disposition home health service (06) | DRG 163 ==
LOC: OR 05:51 → CVICU 10:30 → 3WST 04-30 22:57
PROVIDERS: ADMIT Thoracic Surgery (Cardiothoracic Vascular Surgery); ATTEND Thoracic Surgery (Cardiothoracic Vascular Surgery)
PROC: 02UG0JZ Supplement Mitral Valve with Synthetic Substitute, Open Approach (ICD-10-PCS; principal; 2023-04-29)
PROC: 5A1221Z Performance of Cardiac Output, Continuous (ICD-10-PCS; 2023-04-29)
PROC: B24BZZ4 Ultrasonography of Heart with Aorta, Transesophageal (ICD-10-PCS; 2023-04-29)
DX: I34.0 Nonrheumatic mitral (valve) insufficiency (principal); J96.01 Acute respiratory failure with hypoxia; I50.31 Acute diastolic (congestive) heart failure; I27.20 Pulmonary hypertension, unspecified; E83.51 Hypocalcemia; Z20.822 Contact with and (suspected) exposure to COVID-19; I11.0 Hypertensive heart disease with heart failure; I16.0 Hypertensive urgency; D64.9 Anemia, unspecified; Z86.16 Personal history of COVID-19
CPT/HCPCS: 36415; 36600; 71045; 80048; 82375; 82805; 82962; 83735; 84100; 84132; 85025; 85347; 86850; 86900; 86920; 93005; 93306; 94640; 97110; 97116; 97163; 97166; 97530; 97535; C1725; C1729; C1751; C1758; J0360; J0690; J1170; J1265; J1644; J1815; J1885; J1940; J2250; J2370; J2405; J2704; J2710; J3010; J3475; J3480; J3490; J7050; J7060; L3908; P9047

== ENCOUNTER 2024-07-18 16:31 | Emergency (ER) | payer MEDICAID, OTHER ==
[~2024-07-18] VITALS: Ht 170.2 cm; Wt 105.0 kg
[~2024-07-18 16:31] MED LIST changes: -ACETAMINOPHEN 500MG TABLET ONE; +ASCO-339 PO; -DOPAMINE 400MG/250ML PREMIX 250 ML IV ONE; -HEPARIN 1000 UNITS/ML 10ML ONE; +METO-411 PO; -MIRT-111 PO; +MIRT-145 PO; +MULT-1204 PO; -NICARDIPINE 40MG/200ML PREMIX 200 ML IV ONE; -POLYMYXIN B SULFATE 500000 UNITS/VIAL ONE; -SEVOFLURANE 250 ML LIQUID INH ONE; -THROMBIN (BOVINE) 5000 UNITS/VIAL TOP ONE
[2024-07-18 16:34] VITALS: O2SAT 99
[2024-07-18 16:37] VITALS: BP 184/108; PULSE 84; RESP 16; TEMP 98.2; O2SAT 99
[2024-07-18 17:58] LABS: CHLORIDE 112 mEq/L (98-107); POTASSIUM 3.7 mEq/L (3.5-5.1); SODIUM 148 mEq/L (136-145)
[2024-07-18 17:59] LABS: BASOPHILS % 0.6 % (0.0-2.0); EOSINOPHILS % 1.7 % (0.0-5.0); HEMATOCRIT. 42.7 % (42.0-52.0); HEMOGLOBIN. 14.9 g/dL (14.0-18.0); LYMPHOCYTES % 18.6 % (20.0-50.0); MEAN CORPUSCULAR HEMOGLOBIN 31.5 pg (28.0-32.0); MEAN CORPUSCULAR HGB CONC 34.9 g/dL (31.0-37.0); MEAN CORPUSCULAR VOLUME 90.2 fL (80.0-94.0); MEAN PLATELET VOLUME 9.3 fl (7.4-10.4); MONOCYTES % 5.4 % (2.0-8.0); NEUTROPHILS % 73.7 % (40.0-76.0); PLATELET 185 x1000/uL (130-400); RED BLOOD CELL COUNT 4.73 mill/uL (4.7-6.1); RED CELL DISTRIBUTION WIDTH 14.3 % (11.6-14.6); WHITE BLOOD COUNT 6.2 x1000/uL (4.5-11.0)
[2024-07-18 17:59] LABS: CALCIUM 9.8 mg/dL (8.7-10.4); CARBON DIOXIDE 29 mEq/L (21-32)
[2024-07-18 18:03] LABS: D-DIMER 0.69 mg/L FEU (<0.50); PROTHROMBIN TIME 11.1 sec (9.6-11.0)
[2024-07-18 18:04] LABS: CREATININE 1.2 mg/dL (0.6-1.3); GLUCOSE 116 mg/dL (70-105); UREA NITROGEN BLOOD 19 mg/dL (9-23)
[2024-07-18 18:06] LABS: TROPONIN I HIGH SENSITIVITY 38 ng/L (3.0-53)
[2024-07-18] MEDS ORDERED: FUROSEMIDE 40MG/4ML VIAL IVP NR (18:30)
[2024-07-18] MEDS ORDERED: HYDRALAZINE 20MG/ML VIAL IV NR (18:30)
[2024-07-18 18:47] LABS: ETHANOL BLOOD < 10 mg/dL (<10)
[2024-07-18 19:22] LABS: *AMPHETAMINES SCREEN URINE NEGATIVE (NEGATIVE); *BARBITURATES SCREEN URINE NEGATIVE (NEGATIVE); *BENZODIAZEPINES SCREEN URINE NEGATIVE (NEGATIVE); *COCAINE SCREEN URINE NEGATIVE (NEGATIVE); CANNABINOID URINE SCREEN NEGATIVE (NEGATIVE); ECSTASY MDMA SCREEN URINE NEGATIVE (NEGATIVE); METHADONE URINE SCREEN NEGATIVE (NEGATIVE); OPIATES URINE SCREEN NEGATIVE (NEGATIVE); PHENCYCLIDINE URINE SCREEN NEGATIVE (NEGATIVE)
[2024-07-18 20:43] LABS: TROPONIN I HIGH SENSITIVITY 46 ng/L (3.0-53)
[2024-07-21] MEDS ORDERED: FURO-151 PO ×2 (13:51→13:52)
[2024-07-21] MEDS ORDERED: AMIO400T11 PO (13:58)
[2024-07-21] MEDS ORDERED: AMI2 PO (13:59)
== END 2024-07-19 06:20 | disposition left against medical advice (07) ==
LOC: ER 16:31
DX: I50.9 Heart failure, unspecified (principal); I11.0 Hypertensive heart disease with heart failure; Z98.890 Other specified postprocedural states; Z79.899 Other long term (current) drug therapy; Z95.2 Presence of prosthetic heart valve
CPT/HCPCS: 36415; 71045; 80048; 80305; 80320; 83880; 84484; 85025; 85379; 93005; 99285; G0480

== ENCOUNTER 2024-12-30 12:26 | Emergency (ER) | payer MEDICAID ==
[~2024-12-30] VITALS: Ht 170.2 cm; Wt 99.7 kg
[~2024-12-30 12:26] MED LIST changes: +AMI2 PO; +FURO-151 PO; -HYDR25TA PO; +HYDR50TA PO; -LISI20TA31 PO; -METO-411 PO
[2024-12-30 12:34] VITALS: O2SAT 99
[2024-12-30 13:39] LABS: POTASSIUM 4.5 mEq/L (3.5-5.1)
[2024-12-30 13:41] LABS: CALCIUM 9.7 mg/dL (8.7-10.4)
[2024-12-30 13:42] LABS: BASOPHILS % 0.4 % (0.0-2.0); EOSINOPHILS % 1.6 % (0.0-5.0); HEMATOCRIT. 43.5 % (42.0-52.0); HEMOGLOBIN. 14.6 g/dL (14.0-18.0); LYMPHOCYTES % 23.4 % (20.0-50.0); MEAN CORPUSCULAR HEMOGLOBIN 30.8 pg (28.0-32.0); MEAN CORPUSCULAR HGB CONC 33.6 g/dL (31.0-37.0); MEAN CORPUSCULAR VOLUME 91.8 fL (80.0-94.0); MEAN PLATELET VOLUME 8.7 fl (7.4-10.4); MONOCYTES % 3.8 % (2.0-8.0); NEUTROPHILS % 70.8 % (40.0-76.0); PLATELET 229 x1000/uL (130-400); RED BLOOD CELL COUNT 4.74 mill/uL (4.7-6.1); RED CELL DISTRIBUTION WIDTH 15.1 % (11.6-14.6); WHITE BLOOD COUNT 7.2 x1000/uL (4.5-11.0)
[2024-12-30 13:45] LABS: CREATININE 1.3 mg/dL (0.6-1.3)
[2024-12-30 14:57] VITALS: BP 190/100; PULSE 70; RESP 14; TEMP 37; O2SAT 99
== END 2024-12-30 15:02 | disposition home or self-care (01) ==
LOC: ER 12:40
DX: R10.11 Right upper quadrant pain (principal); I10 Essential (primary) hypertension; Z98.890 Other specified postprocedural states; Z79.899 Other long term (current) drug therapy; Z98.84 Bariatric surgery status; Z95.1 Presence of aortocoronary bypass graft
CPT/HCPCS: 36415; 74176; 80048; 85025; 93005; 99284

== ENCOUNTER 2025-01-02 00:08 | Emergency (ER) | payer MEDICAID ==
[~2025-01-02] VITALS: Ht 170.2 cm; Wt 59.0 kg
[2025-01-02 00:45] VITALS: O2SAT 96
[2025-01-02 00:46] VITALS: TEMP 37.3
[2025-01-02] MEDS: MAGNESIUM/ALUMINUM HYDROXIDE/SIMETHICONE 30ML UDC PO STA (01:25)
[2025-01-02 01:26] LABS: BASOPHILS % 0.5 % (0.0-2.0); EOSINOPHILS % 0.7 % (0.0-5.0); HEMATOCRIT. 42.1 % (42.0-52.0); HEMOGLOBIN. 14.5 g/dL (14.0-18.0); LYMPHOCYTES % 20.6 % (20.0-50.0); MEAN CORPUSCULAR HEMOGLOBIN 30.5 pg (28.0-32.0); MEAN CORPUSCULAR HGB CONC 34.4 g/dL (31.0-37.0); MEAN CORPUSCULAR VOLUME 88.8 fL (80.0-94.0); MEAN PLATELET VOLUME 8.4 fl (7.4-10.4); MONOCYTES % 4.2 % (2.0-8.0); PLATELET 222 x1000/uL (130-400); RED BLOOD CELL COUNT 4.74 mill/uL (4.7-6.1); RED CELL DISTRIBUTION WIDTH 14.7 % (11.6-14.6); WHITE BLOOD COUNT 7.6 x1000/uL (4.5-11.0)
[2025-01-02] MEDS: FAMOTIDINE 20MG TABLET PO ONE (01:26)
[2025-01-02] MEDS: HYDROCODONE/ACETAMINOPHEN 5/325MG TABLET PO STA (01:26)
[2025-01-02 01:34] LABS: CARBON DIOXIDE 22 mEq/L (21-32); CHLORIDE 110 mEq/L (98-107); POTASSIUM 3.8 mEq/L (3.5-5.1); SODIUM 141 mEq/L (136-145)
[2025-01-02 01:35] LABS: CALCIUM 8.6 mg/dL (8.7-10.4)
[2025-01-02 01:37] LABS: INR 1.1
[2025-01-02 01:39] LABS: CREATININE 1.4 mg/dL (0.6-1.3); GLUCOSE 100 mg/dL (70-105)
[2025-01-02 01:40] LABS: CLARITY URINE CLEAR (CLEAR); COLOR URINE YELLOW (YELLOW); GLUCOSE URINE NEGATIVE (NEGATIVE); KETONES URINE NEGATIVE (NEGATIVE); LEUKOCYTE ESTERASE URINE NEGATIVE (NEGATIVE); NITRITE URINE NEGATIVE (NEGATIVE); OCCULT BLOOD URINE NEGATIVE (NEGATIVE); PH URINE 5.5 (4.5-8.0); PROTEIN URINE TRACE (NEGATIVE); SPECIFIC GRAVITY URINE 1.012 (1.005-1.030); UROBILINOGEN URINE 0.2 E.U./dL (0.2-1.0)
[2025-01-02 01:40] LABS: ETHANOL BLOOD < 10 mg/dL (<10); UREA NITROGEN BLOOD 25 mg/dL (9-23)
[2025-01-02 01:41] LABS: ALANINE AMINOTRANSFERASE 43 IU/L (10-49); ALBUMIN 3.8 g/dL (3.2-4.8); ASPARTATE AMINOTRANSFERASE 37 IU/L (<34)
[2025-01-02 01:42] LABS: BILIRUBIN DIRECT 0.4 mg/dL (<=3.0); BILIRUBIN TOTAL 1.4 mg/dL (0.1-1.0); PROTEIN TOTAL 6.6 g/dL (6.0-8.3)
[2025-01-02 02:04] LABS: *AMPHETAMINES SCREEN URINE NEGATIVE (NEGATIVE); *BARBITURATES SCREEN URINE NEGATIVE (NEGATIVE); *BENZODIAZEPINES SCREEN URINE NEGATIVE (NEGATIVE); *COCAINE SCREEN URINE NEGATIVE (NEGATIVE); CANNABINOID URINE SCREEN NEGATIVE (NEGATIVE); ECSTASY MDMA SCREEN URINE NEGATIVE (NEGATIVE); METHADONE URINE SCREEN NEGATIVE (NEGATIVE); OPIATES URINE SCREEN NEGATIVE (NEGATIVE); PHENCYCLIDINE URINE SCREEN NEGATIVE (NEGATIVE)
[2025-01-02] MEDS ORDERED: ACET-2708 MT (02:39)
[2025-01-02 02:47] LABS: BACTERIA URINE NONE SEEN; RBC URINE 0-2 /hpf (0-2); SQUAMOUS EPITHELIAL CELL URINE NONE SEEN /lpf (RARE/1+); WBC URINE 0-2 /hpf (0-2)
[2025-01-02 04:11] VITALS: BP 162/72; PULSE 65; RESP 16; O2SAT 98
== END 2025-01-02 04:12 | disposition home or self-care (01) ==
LOC: ER 00:08
DX: R10.31 Right lower quadrant pain (principal); R10.32 Left lower quadrant pain; Z79.899 Other long term (current) drug therapy
CPT/HCPCS: 36415; 74176; 80048; 80076; 80305; 80320; 81003; 85025; 99284; G0480